=== PATIENT | female | born 1965 | race Caucasian/White ===

== ENCOUNTER 2018-11-17 20:11 | Emergency (ER) | payer OTHER, MEDICAID ==
--- NOTE | 2018-11-17 20:46 | EDM.PDOC ---
ED HPI GENERAL MEDICAL PROBLEM - General Chief Complaint: ENT Problem Stated Complaint: BUG IN LEFT EAR Time Seen by Provider: 11/17/18 20:42 Source of Information: Reports: Patient History Limitations: Reports: No Limitations - History of Present Illness INITIAL COMMENTS - FREE TEXT/NARRATIVE: This lady is here because of a bug in her ear. She said it was buzzing around her ear for 30 minutes without labor driving here and then it quit she thinks maybe it . - Related Data Allergies Allergy/AdvReac Type Severity Reaction Status Date / Time Sulfa (Sulfonamide Allergy Rash Verified 11/17/18 20:31 Antibiotics) Past Medical History MEDICAL ATTENDANT History: Reports: Neurological History: Reports: Migraines - Past Surgical History GI Surgical History: Reports: Appendectomy Female Surgical History: Reports: Section Social & Family History - Family History Family Medical History: Unobtainable - Tobacco Use Smoking Status *Q: Never Smoker - Caffeine Use Caffeine Use: Reports: Coffee Caffeine Use Comment: daily coffee use - Alcohol Use Days Per Week of Alcohol Use: 2 Number of Drinks Per Day: 1 Total Drinks Per Week: 2 - Recreational Drug Use Recreational Drug Use: No ED ROS ENT - Review of Systems Review Of Systems: ROS reveals no pertinent complaints other than HPI. ED EXAM, ENT - Physical Exam Exam: See Below Exam Limited By: No Limitations General Appearance: Alert, WD/WN Ears: Other (The left ear was thoroughly examined the ear canal is clear without any abnormalities the tympanic membrane is clear translucent appears to be normal and I don't see any insect anywhere.) Course - Vital Signs Last Recorded V/S: Last Vital Signs Temp 35.4 C 11/17/18 20:36 Pulse 79 11/17/18 20:36 Resp 16 11/17/18 20:36 BP 144/94 H 11/17/18 20:36 Pulse Ox 99 11/17/18 20:36 Departure - Departure Time of Disposition: 20:43 Disposition: Home, Self-Care 01 Condition: Fair Clinical Impression: Foreign body in left ear - Discharge Information Referrals: PCP,None [Primary Care Provider] - Additional Instructions: The ear canal appears to be completely normal. It was well visualized and there was no insect seen. If you wish to wash the area out with water you can feel free to do so. This can easily be done in the shower just by running warm border into the ear and let it drain. Do not put any type of syringe into the ear in an attempt to flush it out
== END 2018-11-17 20:49 | disposition home or self-care (01) ==
LOC: JP.ED 20:11
DX: T16.1XXA Foreign body in right ear, initial encounter (principal); X58.XXXA Exposure to other specified factors, initial encounter; Z88.2 Allergy status to sulfonamides
CPT/HCPCS: 99282